=== PATIENT | female | born 2000 | race Two or more races ===

== ENCOUNTER 2024-06-20 11:18 | Emergency (ER) | payer MEDICAID, SELFPAY ==
[2024-06-20 11:20] VITALS: BMI 30.2
[2024-06-20 11:47] VITALS: BP 134/83; PULSE 81; RESP 19; TEMP 36.9; O2SAT 96
--- NOTE | 2024-06-20 11:55 | XR_ITS ---
Examination: Abdomen sonogram, Limited Date and time of exam: June 20, 2024 1229 hours INDICATIONS: Right upper abdominal pain and tenderness vomiting beginning 5 days ago Technique: Real-time gaston scale transabdominal sonographic images of the upper abdomen obtained. Findings: Normal gallbladder Normal common bile duct 0.3 cm Pancreatic head 1.8 cm Liver 15.4 cm fatty infiltration no focal liver lesions Normal hepatopedal portal venous flow Patent IVC IMPRESSION: Normal gallbladder Normal common bile duct Fatty liver
--- NOTE | 2024-06-20 11:55 | XR_ITS ---
Examination: CT brain head without contrast. 2-D sagittal coronal reconstructions Date and time of exam:June 20, 2024 1225 hours INDICATIONS: Onset right-sided facial numbness beginning this morning CTDI: vol (mGy):49.4 DLP: (mGycm):892 Technique: Multiple CT axial sections of the brain have been obtained, 5 mm slice thickness. Contrast has not been administered. 2-D sagittal, coronal reconstructions have been obtained Low dose protocols were performed. One or more of the following dose reduction techniques were used; automated exposure control, adjustment of the mA and/or KV according to patient size, use of iterative reconstruction technique. Findings: No significant ventricular enlargement. Intra-axial or extra-axial hemorrhage density is not seen. No mass effect or midline shift Basal cisterns are not remarkable. Fourth ventricle is midline. Cranial vault intact. Impression: Negative for acute hemorrhage, mass effect or midline shift As clinically warranted, brain MRI follow-up would best assess for demyelinating disease
--- NOTE | 2024-06-20 11:55 | XR_ITS ---
Examination: CT abdomen and pelvis without contrast. Coronal 3-D reconstructions. Sagittal 2-D reconstructions. Date and time of exam:June 20, 2024 1407 hours INDICATIONS: Upper abdominal pain with nausea onset today CTDI: vol (mGy): 9.09 DLP: (mGycm): 473 Technique: Axial images of the abdomen have been obtained, 3 mm slice thickness Intravenous contrast material has not been administered. Low dose protocols were performed. One or more of the following dose reduction techniques were used; automated exposure control, adjustment of the mA and/or KV according to patient size, use of iterative reconstruction technique. Findings: No focal liver or splenic lesions No gallstones No pancreatic or adrenal mass No renal or ureteral calculi, no hydronephrosis Aorta normal size Small lymph nodes in the right lower mesentery No pericecal inflammatory change No pelvic mass Bladder intact IMPRESSION: No renal or ureteral calculi, no hydronephrosis No CT findings of appendicitis bowel obstruction or diverticulitis on this noncontrast study
--- NOTE | 2024-06-20 11:56 | PD.EDCHEST ---
ED Chest Pain RME/HPI General Chief Complaint: Chest Pain Stated Complaint: CHEST/HEAD PAIN Time Seen by Provider: 06/20/24 11:41 Arrival date/time: 06/20/24 11:18 RME / HPI RME / HPI narrative: This section includes all my notes and documentations, including HPI, PE, and ED course.? Reza Gold MD HPI: 24 year old female with history of IBS presents to the ED for evaluation of multiple symptoms, including severe headache, chest pain, abdominal pain under the left breast, and back pain. Could affect eating with nausea. Accompanied by on/off shortness of breath. Additionally reports pain to the right upper abdomen, right jaw numbness, and right sided neck pain. Reportedly 5 months ago had similar jaw and neck pain and diagnosed with sinusitis. Today reports yellowish nasal drainage most prominent in the mornings and nights. Denies fevers, chills, sweats, cough, vomiting, diarrhea, or urinary symptoms. No other complaints. ROS: All negative except as documented in HPI. Physical Exam: General:? Alert and oriented.? No acute distress when remaining still.?? Eyes:? Conjunctivae and lids clear.? ENT:? No nasal congestion.? Neck:? Supple.? Heart:? RRR.? Lungs:? No respiratory distress.? Good air movement.? No rhonchi, wheezing, rales.?? Chest: No significant tenderness. Abdomen:? Soft and nontender.??No rebound or guarding. No distention. Normal BS. Legs:? No clubbing, cyanosis, edema.? Skin:? Warm and dry.?? Neuro:? Alert and oriented X 3.??Cranial nerves II to XII grossly normal. No peripheral motor deficits. I reviewed all diagnostic test results. My review of the head CT report is?no acute findings. My review of the abdominal CT report is no acute findings. My review of the GB ultrasound report is no acute findings. Blood tests and urine tests?unremarkable. At this point, diagnoses include?stomach ulcer. Prescribed omeprazole and Protonix and recommended more outpatient workup. Based on my best medical judgment, made decision no further evaluation or treatment indicated at this time.? Patient understands and agrees to the discharge instructions customized and printed, see below. Discharge instructions from Dr. Gold: ?After extensive evaluation, your symptoms may be due to stomach ulcer (see attached handout).? ?To help heal the ulcer, take Omeprazole 40 mg every morning and Famotidine 40 mg at bedtime for a month. ?Zofran for nausea/vomiting.? Clear liquid diet for 24 hours.? Then slowly advance diet as tolerated. ?Avoid food and beverages that can trigger and worsen ulcers.? See attached handout. ?See a private doctor on 06/22/2024 for recheck and further care. Ask to review all test results and official radiology reports, to make sure you receive all necessary follow-ups and monitoring. Ask to help you get more care not available here in the ER.? Such as EGD or scoping the stomach, colonoscopy or scoping the colon, and a referral to see a exchange engineer. ?Seek immediate medical care with worsening or with any concerns. Reza Gold MD Related Data Previous Rx's ?Medication ?Instructions ?Recorded naproxen 500 mg tablet 500 mg PO BID #30 tabs 08/10/23 ondansetron 4 mg disintegrating 4 mg PO Q8H PRN nausea and 08/10/23 tablet vomiting #15 tabs cyclobenzaprine 10 mg tablet 10 mg PO HS #20 tabs 09/22/23 meloxicam 7.5 mg tablet 7.5 mg PO QDAY #14 tabs 09/22/23 famotidine 40 mg tablet 40 mg PO QDAY #30 tabs 06/20/24 omeprazole 40 mg capsule,delayed 40 mg PO QDAY #30 caps 06/20/24 release ondansetron 4 mg disintegrating 4 mg PO TID PRN nausea and 06/20/24 tablet vomiting 5 days #10 tabs Allergies Allergy/AdvReac Type Severity Reaction Status Date / Time naproxen Allergy Intermediate Rash Verified 06/20/24 11:22 Review of Systems Review of Systems Systems Reviewed: All systems reviewed, normal except as documented Past Medical History Past Medical History CARDIAC: Negative Congestive Heart Failure RESPIRATORY: Negative Chronic Obstructive Pulmonary Disease (COPD) GASTROINTESTINAL: Positive Irritable Bowel GENITOURINARY: Negative Renal Disease ENDOCRINE: Positive Hyperthyroidism; Negative Diabetes Mellitus Type 1 or Diabetes Mellitus Type 2 Family History FAMILY HISTORY: Positive Family Cardiac Disorders, Family Cancer and Family Surgery Social History SMOKING STATUS: Never smoker ED Exam Narrative Physical exam: As noted in HPI Course Quality Measures none Orders Category Date Time Status CT abdomen pelvis wo con Stat Exams 06/20/24 11:[address] head/brain wo con Stat Exams 06/20/24 11:55 Completed US gall bladder Stat Exams 06/20/24 11:55 Completed Amylase Stat Lab 06/20/24 12:08 Completed CBC Stat Lab 06/20/24 12:08 Completed CMP [Comprehensive Metabolic Panel] Stat Lab 06/20/24 12:08 Completed HCG Qualitative,Urine Stat Lab 06/20/24 14:11 Completed HCG,Qualitative Serum Stat Lab 06/20/24 12:08 Completed Lipase Stat Lab 06/20/24 12:08 Completed Magnesium Stat Lab 06/20/24 12:08 Completed UA, C/S IF [Urinalysis, C/S if Indicated] Stat Lab 06/20/24 14:11 Completed Vital Signs Vital signs: Vital Signs Temperature 98.5 F 06/20/24 11:47 Pulse Rate 81 06/20/24 11:47 Respiratory Rate 19 06/20/24 11:47 Blood Pressure 134/83 H 06/20/24 11:47 Pulse Oximetry (%) 96 06/20/24 11:47 Oxygen Delivery Method Room Air 06/20/24 11:47 Chest Pain MDM Narrative MDM Narrative:: Chuyita Sullivan am scribing for and in the presence of Dr. Gold. Patient data External records reviewed:: [facility] previous records (I reviewed ED visit on 02/05/2024 ) Clinical information provided by:: patient Social determinants that could affect healthcare access:: none Patient has the following chronic illnesses:: IBS How is presenting disease/condition affected by chronic disease/condition?: exacerbated by Evaluation data The following diagnostics were reviewed and interpreted by me:: lab results and radiology exam(s) Lab and/or radiology exams considered but not ordered:: none Interpretation Summary: Stomach ulcer Medications / Prescriptions Medications or Prescriptions considered but not ordered:: None Medication administrations:: None Consultations Consultation(s) initiated? (list below): No Diagnosis Chest Pain Differential Diagnosis: fracture of rib, pneumothorax, atypical chest pain, costochondritis, chest pain, biliary colic and other (CVA) Most likely diagnosis given after review of the tests above:: Stomach ulcer Admission Indicated Admission indicated?: not indicated Explain why admission is indicated or not indicated:: Admission criteria not met Admission Request Was there a request for admission?: No Disposition Plan Disposition Plan: Discharge Discharge Attestation Discharge Attestation: The patient and all family members were given an opportunity to ask questions and understood the discharge instructions. Discharge instructions specifically effects, indications for sooner follow up or return to the emergency department, and the expected course of current diagnosis. Patient condition: Stable Discharge Plan Plan Patient Disposition: HOME (Self Care) Prescriptions/Referrals Prescriptions/Med Rec: New famotidine 40 mg tablet 40 mg PO QDAY Qty: 30 0RF omeprazole 40 mg capsule,delayed release(DR/EC) 40 mg PO QDAY Qty: 30 0RF ondansetron 4 mg tablet,disintegrating 4 mg PO TID PRN (Reason: nausea and vomiting) 5 Days Qty: 10 0RF No Action ondansetron 4 mg tablet,disintegrating 4 mg PO Q8H PRN (Reason: nausea and vomiting) Qty: 15 0RF naproxen 500 mg tablet 500 mg PO BID Qty: 30 0RF meloxicam 7.5 mg tablet 7.5 mg PO QDAY Qty: 14 0RF cyclobenzaprine 10 mg tablet 10 mg PO HS Qty: 20 0RF Referrals: Michelle Hinds PA-C [Primary Care Provider] - In 1 week Problem List Clinical Impression: Stomach ulcer Patient/Caregiver Discharge Instructions Discharge Activity: activity as tolerated Education Materials: ED PEPTIC ULCER vs GASTRITIS Additional Instructions: Discharge instructions from Dr. Gold: ?After extensive evaluation, your symptoms may be due to stomach ulcer (see attached handout).? ?To help heal the ulcer, take Omeprazole 40 mg every morning and Famotidine 40 mg at bedtime for a month. ?Zofran for nausea/vomiting.? Clear liquid diet for 24 hours.? Then slowly advance diet as tolerated. ?Avoid food and beverages that can trigger and worsen ulcers.? See attached handout. ?See a private doctor on 06/22/2024 for recheck and further care. Ask to review all test results and official radiology reports, to make sure you receive all necessary follow-ups and monitoring. Ask to help you get more care not available here in the ER.? Such as EGD or scoping the stomach, colonoscopy or scoping the colon, and a referral to see a exchange engineer. ?Seek immediate medical care with worsening or with any concerns. Print Language: Wolof Stand Alone Forms: Latasha Award Info., Patient Portal Info Letter
[2024-06-20 12:27] LABS: Basophils % (Auto) 0 % (0-2.5); Eosinophils # (Auto) 0.1 Thou/mm3 (0.0-0.5); Eosinophils % (Auto) 1 % (0-10); Hematocrit 44.4 % (36.0-46.0); Hemoglobin 15.2 g/dL (12.0-16.0); Immature Granulocytes % (Auto) 0 % (0-0); Immature Granulocytes Auto 0.02 Thou/mm3 (0.00-0.00); Lymphocytes # (Auto) 2.3 Thou/mm3 (1.0-4.8); Lymphocytes % (Auto) 34 % (10-50); Mean Corpuscular HGB Conc 34.2 g/dl (31.0-37.0); Mean Corpuscular Hemoglobin 31.8 pg (25.0-35.0); Mean Corpuscular Volume 93 fL (80-100); Monocytes # (Auto) 0.4 Thou/mm3 (0.0-0.8); Monocytes % (Auto) 6 % (0-12); Neutrophils % (Auto) 59 % (37-80); Nucleated Red Blood Cell % 0 /100 WBC (0); Platelet Count 305 Thou/mm3 (140-440); RDW Standard Deviation 42.6 fL (36.4-46.3); Red Blood Count 4.78 Miln/mm3 (4.00-5.20); White Blood Count 6.8 Thou/mm3 (3.6-11.0)
[2024-06-20 12:51] LABS: Alanine Aminotransferase 142 U/L (10-49); Albumin, Serum 5.4 gm/dL (3.5-5.0); Albumin/Globulin Ratio 1.7 (1.2-2.2); Alkaline Phosphatase 76 U/L (46-116); Amylase 83 U/L (30-118); Anion Gap 8 (7-16); Aspartate Amino Transferase 57 U/L (0-34); BUN/Creatinine Ratio 16 Ratio (12-20); Bilirubin,Total 0.8 mg/dL (0.3-1.2); Blood Urea Nitrogen 11 mg/dL (9-23); Calcium 9.8 mg/dL (8.3-10.6); Calcium (Corrected) 9.8 mg/dL (8.5-10.1); Carbon Dioxide 25.7 mMol/L (20.0-31.0); Chloride 102 mMol/L (98-107); Creatinine (Component) 0.7 mg/dL (0.6-1.3); Estimated Creatinine Clearance 133.8 mL/min (>60); Globulin 3.1 gm/dL (2.3-3.5); Glucose 99 mg/dL (74-106); Lipase 39 U/L (12-53); Magnesium 1.9 mg/dL (1.6-2.6); Osmolality,Calculated 271 (275-295); Potassium 4.4 mMol/L (3.4-5.1); Sodium 136 mMol/L (136-145); Total Protein 8.5 gm/dL (5.7-8.2); eGFR > 60 See Note
[2024-06-20 13:06] LABS: HCG,Qualitative Serum Negative
[2024-06-20 14:27] LABS: Collection Type, Urine Clean Catch
[2024-06-20 14:47] LABS: Bacteria,Urine Rare; Bilirubin,Urine Negative (Negative); Blood,Urine Negative (Negative); Clarity,Urine Clear (Clear/Hazy); Color,Urine Colorless (Lt Yel-Yel); Culture Indicated,Urine Not Indicated; Glucose, Urine Negative (Negative); Ketones,Urine Negative (Negative); Leukocyte Esterase,Urine Negative (Negative); Nitrite,Urine Negative (Negative); PH,Urine 5.5 (5.0-7.0); Protein,Urine Negative (Neg - Trace); RBC,Urine 1 /hpf (0-3); Specific Gravity,Urine 1.011 (1.001-1.035); Squamous Epithelial Cell,Urine 2 /hpf (0-5); Urobilinogen,Urine Negative mg/dL (0.0-1.0); WBC,Urine < 1 /hpf (0-5)
[2024-06-20 14:53] LABS: HCG Qualitative,Urine Negative
== END 2024-06-20 15:40 | disposition home or self-care (01) ==
PROVIDERS: Emergency Provider Emergency Medicine; PCP Physician Assistant
DX: K25.9 Gastric ulcer, unspecified as acute or chronic, without hemorrhage or perforation (principal); R20.0 Anesthesia of skin; R10.11 Right upper quadrant pain; R11.10 Vomiting, unspecified
CPT/HCPCS: 36415; 70450; 74176; 76705; 80053; 81001; 81025; 82150; 83690; 83735; 84703; 85025; 99284

== ENCOUNTER 2024-06-24 10:48 | Emergency (ER) | payer MEDICAID, SELFPAY ==
[2024-06-24 10:56] VITALS: BP 132/82; PULSE 78; RESP 19; TEMP 37.2; O2SAT 99; BMI 30.8
--- NOTE | 2024-06-24 11:12 | EDNOTE_ITS ---
ED Abdominal Pain RME/HPI General Chief Complaint: Abdominal Pain Stated complaint: Abdominal pain X 5 days Time seen by provider: 06/24/24 11:09 Arrival date/time: 06/24/24 10:48 24-year-old female with a history of IBS presents to the emergency room with a chief complaint of left upper abdominal pain x 5 days. Patient was seen here 2 days ago and states her pain has not gone away. Source: patient Mode of arrival: ambulatory Limitations: no limitations Related Data Previous Rx's ?Medication ?Instructions ?Recorded naproxen 500 mg tablet 500 mg PO BID #30 tabs 08/09 ondansetron 4 mg disintegrating 4 mg PO Q8H PRN nausea and 08/10/23 tablet vomiting #15 tabs cyclobenzaprine 10 mg tablet 10 mg PO HS #20 tabs 08/25 0 meloxicam 7.5 mg tablet 7.5 mg PO QDAY #14 tabs 08/25 0 famotidine 40 mg tablet 40 mg PO QDAY #30 tabs 06/20 omeprazole 40 mg capsule,delayed 40 mg PO QDAY #30 cap s 06/20/24 release ondansetron 4 mg disintegrating 4 mg PO TID PRN nausea and 06/20/24 tablet vomiting 5 days #10 tabs Allergies Allergy/AdvReac Type Severity Reaction Status Date / Time naproxen Allergy Intermediate Rash Verified 06/20/24 11:22 Review of Systems Review of Systems Systems Reviewed: All systems reviewed, normal except as documented Constitutional Constitutional: Reports system reviewed and no additional complaints, except as documented, Denies fatigue, Denies fever(s), Denies headache(s) and Denies weakness Eyes Eyes: Reports system reviewed and no additional complaints, except as documented, Denies blurry vision and Denies change in vision ENT Ears, Nose, Mouth, and Throat: Reports system reviewed and no additional complaints, except as documented, Denies otalgia, Denies headache(s), Denies nasal congestion, Denies throat swelling and Denies vertigo Cardiovascular Cardiovascular: Reports system reviewed and no additional complaints, except as documented, Denies chest pain, Denies dyspnea and Denies dyspnea on exertion Respiratory Respiratory: Reports system reviewed and no additional complaints, except as documented, Denies chest congestion, Denies cough, Denies dyspnea, Denies dyspnea on exertion and Denies wheezing Gastrointestinal Gastrointestinal: Reports system reviewed and no additional complaints, except as documented, Reports abdominal pain, Reports bloating, Reports cramping, Reports dyspepsia, Reports early satiety, Reports heartburn, Denies nausea and Denies vomiting Genitourinary Genitourinary: Reports system reviewed and no additional complaints, except as documented Musculoskeletal Musculoskeletal: Reports system reviewed and no additional complaints, except as documented and Denies back pain Integumentary/Breasts Skin/Breast: Reports system reviewed and no additional complaints, except as documented and Denies wounds Neurologic Neurologic: Reports system reviewed and no additional complaints, except as documented, Denies confusion, Denies headache(s), Denies lack of coordination, Denies vertigo and Denies weakness Psychiatric Psychiatric: Reports system reviewed and no additional complaints, except as documented, Denies anxiety, Denies confusion, Denies depression, Denies paranoia, Denies suicidal ideation and Denies tactile hallucinations Endocrine Endocrine: Reports system reviewed and no additional complaints, except as documented and Denies fatigue Hematologic/Lymphatic Hematologic/Lymphatic: Reports system reviewed and no additional complaints, except as documented and Denies lymphadenopathy Allergic/Immunologic Allergic/Immunologic: Reports system reviewed and no additional complaints, except as documented, Denies throat swelling, Denies urticaria and Denies wheezing Past Medical History Past Medical History CARDIAC: Negative Congestive Heart Failure RESPIRATORY: Negative Chronic Obstructive Pulmonary Disease (COPD) GASTROINTESTINAL: Positive Irritable Bowel GENITOURINARY: Negative Renal Disease ENDOCRINE: Positive Hyperthyroidism; Negative Diabetes Mellitus Type 1 or Diabetes Mellitus Type 2 Family History FAMILY HISTORY: Positive Family Cardiac Disorders, Family Cancer and Family Surgery Social History SMOKING STATUS: Never smoker ED Exam General Limitations: Present no limitations General appearance: Present alert and in no apparent distress Head Head exam: Present atraumatic Eye Eye exam: Present normal appearance, PERRL and EOMI ENT ENT exam: Present normal exam, normal oropharynx and mucous membranes moist Neck Neck exam: Present normal inspection, full ROM and trachea midline Chest Chest inspection: Present normal inspection and symmetric chest wall rise Respiratory Respiratory exam: Present normal lung sounds bilaterally Cardiovascular Cardiovascular exam: Present regular rate, normal rhythm and normal heart sounds Abdominal Exam Abdominal exam: Present soft and normal bowel sounds Extremities Exam Extremities exam: Present normal inspection and full ROM Back Exam Back exam: Present normal inspection and full ROM Neurological Exam Neurological exam: Present alert, oriented X3 and CN II-XII intact Psychiatric Psychiatric exam: Present normal affect and normal mood Skin Skin exam: Present warm, dry, intact and normal color Course Quality Measures none Orders Category Date Time Status mg Hyd/Al Hyd/Divya Susp [Maalox Susp] Med 06/24/24 11:09 Discontinued 30 ml PO X1 ONE Vital Signs Vital signs: Vital Signs Temperature 99.0 F 06/24/24 10:56 Pulse Rate 78 06/24/24 10:56 Respiratory Rate 19 06/24/24 10:56 Blood Pressure 132/82 H 06/24/24 10:56 Pulse Oximetry (%) 99 06/24/24 10:56 Oxygen Delivery Method Room Air 06/24/24 10:56 O2 saturation 99% within normal limits Abdominal Pain MDM MDM Narrative MDM Narrative:: 24-year-old female with a history of IBS presents to the emergency room with a chief complaint of left upper abdominal pain x 5 days. Patient was seen here 2 days ago and states her pain has not gone away. Patient is hemodynamically stable and in no apparent distress. Physical examination shows some tenderness to the left upper area of her abdomen with palpation. Patient denies any nausea vomiting diarrhea and she is afebrile. Patient states the pain is very similar as the pain she had 2 days ago during her visit. Patient states that her pain has not really gone away since that visit. During her previous visit a CT of the abdomen and pelvis was completed CT of the head blood work urinalysis and ultrasound of the gallbladder and were all negative. The patient was discharged with a gastric ulcer. Patient states that yesterday she ate turkey and has not been following her liquid diet that was r ecommended by attending physician that saw her. I spoke to the patient and told her that her whole workup was negative and that repeating everything will most likely be the same since her pain has not gotten worse and patient states has gotten a little better since her previous visit. I spoke to the patient and told her that she will need to follow-up with her primary care provider and have a referral to a communication center coordinator to get to the bottom of what is going on with her. Patient was discharged and educated to return to the emergency room for any evidence of worsening signs or symptoms Patient data External records reviewed:: [facility] previous records Clinical information provided by:: patient Social determinants that could affect healthcare access:: none Patient has the following chronic illnesses:: No chronic illness How is presenting disease/condition affected by chronic disease/condition?: no chronic disease Evaluation data The following diagnostics were reviewed and interpreted by me:: lab results and radiology exam(s) Lab and/or radiology exams considered but not ordered:: Labs and radiology exams considered and ordered Interpretation Summary: N/A Medications / Prescriptions Medications or Prescriptions considered but not ordered:: Medication given medication given Medication administrations:: Medication Administration History Discontinued Medications Al Hydrox/Mg Hydrox/Simethicone (Mg Hyd/Al Hyd/Divya (Maalox Reg) Susp 30 Ml Udc) 30 ml PO X1 ONE Stop: 06/24/24 11:10 Medication given Consultations Consultation(s) initiated? (list below): No Diagnosis Differential diagnosis abdominal pain: abdominal pain, constipation, diverticulitis, endometriosis, gastroenteritis, pancreatitis and other (Stomach ulcer) Most likely diagnosis given after review of the tests above:: Stomach ulcer Admission Indicated Admission indicated?: not indicated Admission Request Was there a request for admission?: No Disposition Plan Disposition Plan: Discharge Discharge Attestation Discharge Attestation: The patient and all family members were given an opportunity to ask questions and understood the discharge instructions. Discharge instructions specifically effects, indications for sooner follow up or return to the emergency department, and the expected course of current diagnosis. Patient condition: Stable Discharge Plan Plan Patient Disposition: HOME (Self Care) Disposition Comment: Stable Prescriptions/Referrals Prescriptions/Med Rec: No Action ondansetron 4 mg tablet,disintegrating 4 mg PO Q8H PRN (Reason: nausea and vomiting) Qty: 15 0RF naproxen 500 mg tablet 500 mg PO BID Qty: 30 0RF meloxicam 7.5 mg tablet 7.5 mg PO QDAY Qty: 14 0RF cyclobenzaprine 10 mg tablet 10 mg PO HS Qty: 20 0RF famotidine 40 mg tablet 40 mg PO QDAY Qty: 30 0RF omeprazole 40 mg capsule,delayed release(DR/EC) 40 mg PO QDAY Qty: 30 0RF ondansetron 4 mg tablet,disintegrating 4 mg PO TID PRN (Reason: nausea and vomiting) 5 Days Qty: 10 0RF Problem List Clinical Impression: Stomach ulcer Patient/Caregiver Discharge Instructions Education Materials: Understanding Gastric Ulcers, ED PEPTIC ULCER vs GASTRITIS Additional Instructions: Please follow-up with your primary care provider in the next 24 to 48 hours. You will need a referral to a communication center coordinator to help figure out the source of your pain. For any evidence of worsening signs or symptoms please return to the emergency room immediately Print Language: Cook Islander Stand Alone Forms: Latasha Award Info., Patient Portal Info Letter PA/SHOW OPERATIONS SUPERVISOR Supervising Physician PA/SHOW OPERATIONS SUPERVISOR Supervising Physician: Dr. Gold
[2024-06-24] MEDS: MG HYD/AL HYD/SIME (Maalox Reg) SUSP 30 ML UDC PO (11:57)
--- NOTE | 2024-06-24 12:00 | PC.NURSE ---
PATIENT GCS 15 AAOX4. AMBULATING WITHOUT DIFFICULTY. PATIENT VERBALIZES UNDERSTANDING OF D/C INSTRUCTIONS. ALL QUESTIONS AND CONCERNS ADDRESSED BY PROVIDER.
== END 2024-06-24 12:05 | disposition home or self-care (01) ==
LOC: SERX 12:02
PROVIDERS: Emergency Provider Emergency Medicine; PCP Physician Assistant
DX: K25.9 Gastric ulcer, unspecified as acute or chronic, without hemorrhage or perforation (principal)
CPT/HCPCS: 99282; A9270